=== PATIENT | female | born 1980 | race Caucasian/White ===

== ENCOUNTER 2017-10-06 14:26 | Emergency (ER) | payer OTHER ==
--- OUTSIDE RECORDS SUMMARY | 2017-10-06 14:27 | XMS REPORT | Clinical Summary ---
:1980 Author Organization [facility] Address [address] [place] [address] Phone Care Team Providers Name Role Phone Unavailable Primary Care Provider Unavailable Allergies Active Allergy Reactions Severity Noted Date Comments Penicillins 10/18/2015 Current Medications Prescription Sig. Disp. Refills Start Date End Date Status HYDROcodone-acetaminophen Take 1 tablet by Active (NORCO 10-325) 10-325 mg mouth every 6 (six) per tablet hours as needed for Pain. baclofen (LIORESAL) 20 MG Take 20 mg by mouth Active tablet 3 (three) times daily. meloxicam (MOBIC) 15 MG Take 15 mg by mouth Active tablet 2 (two) times daily. dimethyl fumarate 240 mg Take 240 mg by Active CpDRIndications: mouth 2 (two) times relapsing form of daily. multiple sclerosis LORazepam (ATIVAN) 1 MG Take 2 mg by mouth Active tabletIndications: 2 (two) times anxiety daily. varenicline (CHANTIX) 1 Take 1 mg by mouth Active mg tabletIndications: 2 (two) times daily Smoking Cessation Give with meals and with a full glass of water. . venlafaxine (EFFEXOR-XR) Take 150 mg by Active 150 MG 24 hr capsule mouth daily. Active Problems Problem Noted Date Multiple sclerosis exacerbation (HCC) 10/19/2015 TIA (transient ischemic attack) 10/17/2015 Social History Tobacco Use Types Packs/Day Years Used Date Former Smoker Quit: 08/18/2015 Sex Assigned at Date Recorded Not on file Last Filed Vital Signs Not on file Plan of Treatment Not on file Results Not on fileafter 10/05/2016
[2017-10-06] MEDS ORDERED: HYDROCODONE/APAP 5/325 MG TAB ONE (16:07)
--- NOTE | 2017-10-06 16:29 | RAD REPORT ---
EXAM DESCRIPTION: RAD -Hand Left 3 View - 10/06/2017 4:07 pm CLINICAL HISTORY: Left hand pain status post injury FINDINGS: Mildly displaced fracture involves the base of the fifth proximal phalanx. No dislocation is seen
--- NOTE | 2017-10-06 17:23 | ER ---
Nurse's Notes [facility] Name: Sugey Negro Age: 37 yrs Sex: Female : 1980 Arrival Date: 10/06/2017 Time: 14:29 Bed 27 Private MD: Marcus Guevara H Diagnosis: Displaced fracture of proximal phalanx of finger Presentation: 10/06 14:37 Presenting complaint: Patient states: night patient states that they injured dm5 their left hand, majority of pain is in lateral aspect of hand, 4th and 5th digits. Bruising and swelling present at this time. Transition of care: patient was not received from another setting of care. Onset of symptoms was October 04, 2017. Risk Assessment: Do you want to hurt yourself or someone else? Patient reports no desire to harm self or others. Initial Sepsis Screen: Does the patient meet any 2 criteria? No. Patient's initial sepsis screen is negative. Does the patient have a suspected source of infection? No. Patient's initial sepsis screen is negative. Care prior to arrival: None. 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 dm5 7 in. (170.18 cm); Pain 8/10; 14:39 Body Mass Index 24.28 (70.31 kg, 170.18 cm) dm5 ED Course: 14:29 Patient arrived in ED. sb2 14:29 Marcus Guevara DO is Private Physician. sb2 14:39 Triage completed. dm5 14:39 Arm band placed on right wrist. dm5 15:10 August Maria PA is PHCP. jmm 15:10 Florencio Nazario MD is Attending Physician. jmm 15:55 eMeta Carlson, JACQUELINE is Primary Nurse. kr2 16:07 Hand Left 3 View XRAY In Process Unspecified. EDMS 17:21 Karel Montero MD is Referral Physician. jmm 17:41 Orthoglass splint: Ulnar gutter/Boxer splint applied on left forearm. capillary refill dh3 less than 3 seconds Sling applied to left arm. Administered Medications: 16:11 Drug: [place] 5 mg-325 mg 1 tabs Route: PO; kr2 17:58 Follow up: Response: No adverse reaction kr2 Outcome: 17:22 Discharge ordered by . alejandro 17:58 Patient left the ED. kr2 Signatures: Dispatcher [employer] Maria Elena Madison, RN RN dm5 August Maria PA PA Jessica Sotomayor dh3 Meeta Carlson RN RN kr2 Niurka Monterroso sb2
--- NOTE | 2017-10-06 17:23 | EDPHYS ---
Physician Documentation [facility] Name: Sugey Negro Age: 37 yrs Sex: Female : 1980 Arrival Date: 10/06/2017 Time: 14:29 Bed 27 Private MD: Marcus Guevara H ED Physician Florencio Nazario HPI: 10/06 15:37 This 37 yrs old Female presents to ER via Ambulatory with complaints of Hand jmm Injury. 15:37 The patient or guardian reports pain. The complaints affect the dorsal aspect of jmm proximal phalanx of left ring finger, dorsal aspect of proximal phalanx of left little finger and dorsum of left hand. Context: resulted from an unknown cause. Onset: The symptoms/episode began/occurred 2 day(s) ago. Associated signs and symptoms: Pertinent positives: bruising, swelling. The patient has not experienced similar symptoms in the past. Patient complains of pain to the left hand. States that she awoke the day after a libertarian with pain and swelling. Patient unsure of the cause. . 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 15:37 MS/extremity: Positive for bruising. 15:37 Skin: Positive for ecchymosis. 15:37 Neuro: Negative for weakness. 15:37 All other systems are negative. Exam: 15:37 Head/Face: atraumatic. Eyes: EOMI, no conjunctival erythema appreciated Chest/axilla: jmm Normal chest wall appearance and motion. Nontender with no deformity. No lesions are appreciated. Cardiovascular: Regular rate and rhythm. No gallops, murmurs, or rubs. Full/Equal distal pulses. 15:37 Constitutional: The patient appears in no acute distress, alert, awake. 15:37 Musculoskeletal/extremity: painful flexion of the left hand is noted, ecchymosis noted to the base of the 4th and 5th phalanx, < 2 sec dist cap refill, NVI. 15:37 Skin: ecchymosis noted to the base of the left base of the 4th and 5th phalanx. 15:37 Neuro: Orientation: is normal, Mentation: is normal, Memory: is normal. 15:37 Psych: Behavior/mood is pleasant, cooperative. Vital Signs: 14:39 BP 130 / 84; Pulse 96; Resp 18; Temp 97.9; Pulse Ox 96% ; Weight 70.31 kg; Height 5 ft. dm5 7 in. (170.18 cm); Pain 8/10; 14:39 Body Mass Index 24.28 (70.31 kg, 170.18 cm) dm5 Procedures: 17:00 Splinting: Splint applied to left hand using ulnar gutter. applied by tech. Examined by afshan me, post splint application: neurovascular intact, 2+ distal pulses palpable, brisk capillary refill noted, Patient tolerated well. MDM: 15:36 Patient medically screened. [facility] 17:18 Data reviewed: vital signs, nurses notes, radiologic studies, plain films. Counseling: afshan I had a detailed discussion with the patient and/or guardian regarding: the historical points, exam findings, and any diagnostic results supporting the discharge/admit diagnosis, the presence of at least one elevated blood pressure reading (>120/80) during this emergency department visit, radiology results, the need for outpatient follow up, to return to the emergency department if symptoms worsen or persist or if there are any questions or concerns that arise at home. Response to treatment: the patient's symptoms have markedly improved after treatment. 10/06 15:36 Order name: Hand Left 3 View XRAY; Complete Time: 16:37 [facility] 10/06 16:40 Order name: Ulnar Gutter splint; Complete Time: 17:44 [facility] Administered Medications: 16:11 Drug: [place] 5 mg-325 mg 1 tabs Route: PO; kr2 17:58 Follow up: Response: No adverse reaction kr2 Disposition: 19:03 Co-signature as Attending Physician, Florencio Nazario MD. Disposition: 10/06/17 17:22 Discharged to Home. Impression: Displaced fracture of proximal phalanx of finger. - Condition is Stable. - Discharge Instructions: Finger Fracture. - Prescriptions for Tylenol- Codeine #3 300-30 mg Oral Tablet - take 1 tablet by ORAL route every 6 hours As needed; 12 tablet. - Medication Reconciliation Form, Thank You Letter, Antibiotic Education, Prescription Opioid Use form. - Follow up: Karel Montero MD; When: 2 - 3 days; Reason: Continuance of care. Signatures: Dispatcher [employer] Maria Elena Madison, RN RN dm5 August Maria PA PA jmm Starr, Gregory, MD MD Meeta Carlson RN RN kr2 Corrections: (The following items were deleted from the chart) 17:58 17:22 10/06/2017 17:22 Discharged to Home. Impression: Displaced fracture of proximal kr2 phalanx of finger. Condition is Stable. Forms are Medication Reconciliation Form, Thank You Letter, Antibiotic Education, Prescription Opioid Use. Follow up: Karel Montero; When: 2 - 3 days; Reason: Continuance of care. afshan
== END 2017-10-06 17:58 | disposition home or self-care (01) ==
LOC: ER 14:26
PROC: 2W3DX1Z Immobilization of Left Lower Arm using Splint (ICD-10-PCS; principal; 2017-10-06)
DX: S62.615A Displaced fracture of proximal phalanx of left ring finger, initial encounter for closed fracture (principal)
CPT/HCPCS: 99283

== ENCOUNTER 2019-05-09 09:52 | Emergency (ER) | payer OTHER ==
[2019-05-09] MEDS ORDERED: FAMOTIDINE 20 MG TAB ONE (11:23)
--- NOTE | 2019-05-09 11:37 | RAD REPORT ---
EXAM DESCRIPTION: RAD - Chest Pa And Lat (2 Views) - 05/09/2019 11:20 am CLINICAL HISTORY: COUGH COMPARISON: Chest Single View dated 10/17/2015 TECHNIQUE: Frontal and lateral views of the chest were obtained. FINDINGS: The lungs are clear. Bilateral breast implants in place. Heart size is normal and central vasculature is within normal limits. No pleural effusion or pneumothorax seen. No acute bony findi ng noted. No aortic abnormality. IMPRESSION: No acute cardiopulmonary process. No suspicious change from comparison.
--- NOTE | 2019-05-09 11:49 | EDPHYS ---
Physician Documentation [facility] Name: Sugey Negro Age: 39 yrs Sex: Female : 1980 Arrival Date: 05/09/2019 Time: 09:54 Bed 12 Private MD: Marcus Guevara H ED Physician Donis Kahn HPI: 05/09 11:56 This 39 yrs old Female presents to ER via Ambulatory with complaints of Cough.snw 11:56 The patient or guardian reports cough, described as moderate, with no sputum. Onset: snw The symptoms/episode began/occurred 5 week(s) ago, and became persistent. Severity of symptoms: At their worst the symptoms were mild, moderate, in the emergency department the symptoms are unchanged. Associated signs and symptoms: The patient has no apparent associated signs or symptoms. It is unknown whether or not the patient has had similar symptoms in the past. It is unknown whether or not the patient has recently seen a physician. pt denies choking episodes, pt states she feels she is having trouble concentrating. TEST ENG: 10:00 LMP 03/2019 aj1 Historical: - Allergies: 10:00 PENICILLINS; aj1 - Home Meds: 10:00 duloxetine oral oral [Active]; Hydrocodone-Acetaminophen Oral [Active]; Xanax Oral aj1 [Active]; tizanidine oral oral [Active]; Doxycycline Oral [Active]; - PMHx: 10:00 Depression; Multiple Sclerosis; Anxiety; aj1 - Immunization history:: Flu vaccine is not up to date. - Social history:: Smoking status: Patient uses tobacco products, smokes one-half pack cigarettes per day. - Ebola Screening: : Patient denies travel to an Ebola-affected area in the 21 days before illness onset. ROS: 11:53 Constitutional: Negative for fever, chills, and weight loss, Eyes: Negative for injury, snw pain, redness, and discharge, ENT: Negative for injury, pain, and discharge, Neck: Negative for injury, pain, and swelling, Cardiovascular: Negative for chest pain, palpitations, and edema, Abdomen/GI: Negative for abdominal pain, nausea, vomiting, diarrhea, and constipation, Back: Negative for injury and pain, : Negative for injury, bleeding, discharge, and swelling, MS/Extremity: Negative for injury and deformity, Skin: Negative for injury, rash, and discoloration. 11:53 Respiratory: Positive for cough, with no reported sputum. 11:53 Neuro: Positive for difficulty concentrated. Exam: 11:53 Head/Face: Normocephalic, atraumatic. Eyes: Pupils equal round and reactive to light, snw extra-ocular motions intact. Lids and lashes normal. Conjunctiva and sclera are non-icteric and not injected. Cornea within normal limits. Periorbital areas with no swelling, redness, or edema. ENT: Nares patent. No nasal discharge, no septal abnormalities noted. Tympanic membranes are normal and external auditory canals are clear. Oropharynx with no redness, swelling, or masses, exudates, or evidence of obstruction, uvula midline. Mucous membranes moist. Neck: Trachea midline, no thyromegaly or masses palpated, and no cervical lymphadenopathy. Supple, full range of motion without nuchal rigidity, or vertebral point tenderness. No Meningismus. Chest/axilla: Normal chest wall appearance and motion. Nontender with no deformity. No lesions are appreciated. Cardiovascular: Regular rate and rhythm with a normal S1 and S2. No gallops, murmurs, or rubs. Normal PMI, no JVD. No pulse deficits. Respiratory: Lungs have equal breath sounds bilaterally, clear to auscultation and percussion. No rales, rhonchi or wheezes noted. No increased work of breathing, no retractions or nasal flaring. Abdomen/GI: Soft, non-tender, with normal bowel sounds. No distension or tympany. No guarding or rebound. No evidence of tenderness throughout. Back: No spinal tenderness. No costovertebral tenderness. Full range of motion. Skin: Warm, dry with normal turgor. Normal color with no rashes, no lesions, and no evidence of cellulitis. MS/ Extremity: Pulses equal, no cyanosis. Neurovascular intact. Full, normal range of motion. Neuro: Awake and alert, GCS 15, oriented to person, place, time, and situation. Cranial nerves II-XII grossly intact. Motor strength 5/5 in all extremities. Sensory grossly intact. Cerebellar exam normal. Normal gait. Psych: Awake, alert, with orientation to person, place and time. Behavior, mood, and affect are within normal limits. 11:53 Constitutional: The patient appears alert, awake, non-toxic, + cigarette odor Vital Signs: 10:00 BP 133 / 87; Pulse 90; Resp 18; Temp 98.6; Pulse Ox 100% on R/A; Weight 58.97 kg (R); aj1 Height 5 ft. 7 in. (170.18 cm) (R); Pain 0/10; 12:00 BP 128 / 78; Pulse 84; Resp 16; Pulse Ox 100% on R/A; hb 10:00 Body Mass Index 20.36 (58.97 kg, 170.18 cm) aj1 MDM: 10:14 Patient medically screened. [facility] 11:55 Data reviewed: vital signs, nurses notes. Data interpreted: Pulse oximetry: on room air snw is 100 %. Interpretation: normal. Counseling: I had a detailed discussion with the patient and/or guardian regarding: the historical points, exam findings, and any diagnostic results supporting the discharge/admit diagnosis, the presence of at least one elevated blood pressure reading (>120/80) during this emergency department visit, radiology results, the need for outpatient follow up, to return to the emergency department if symptoms worsen or persist or if there are any questions or concerns that arise at home. Counseling: I had a detailed discussion with the patient and/or guardian regarding: smoking cessation. Special discussion: I have referred the patient to see his PCP for further evaluation of high blood pressure. Based on the history and exam findings, there is no indication for further emergent testing or inpatient evaluation. I discussed with the patient/guardian the need to see the neurologist for further evaluation of the symptoms. I discussed with the patient/guardian the need to see the primary care provider for further evaluation of the symptoms. 05/09 10:33 Order name: Chest Pa And Lat (2 Views) XRAY; Complete Time: 11:41 snw Administered Medications: 11:52 Drug: Pepcid 20 mg Route: PO; aj1 12:01 Follow up: Response: Medication administered at discharge. hb 12:00 Drug: Decadron 8 mg Route: PO; hb 12:01 Follow up: Response: Medication administered at discharge. Disposition: 15:12 Co-signature as Attending Physician, Donis Kahn MD I agree with the assessment and [facility] plan of care. Disposition: 05/09/19 11:48 Discharged to Home. Impression: Cough. - Condition is Stable. - Discharge Instructions: Food Choices for Gastroesophageal Reflux Disease, Adult, Gastroesophageal Reflux Disease, Adult, Steps to Quit Smoking, Smoking Hazards, Cough, Adult. - Prescriptions for Pepcid 20 mg Oral Tablet - take 1 tablet by ORAL route once daily; 20 tablet. - Work release form, Medication Reconciliation Form, Thank You Letter, Antibiotic Education, Prescription Opioid Use form. - Follow up: Emergency Department; When: As needed; Reason: Worsening of condition. Follow up: Marcus Guevara DO; When: 2 - 3 days; Reason: Recheck today's complaints, Continuance of care, Re-evaluation by your physician. Signatures: Dispatcher [employer] EDGloria Samaniego RN RN ajDonis Byrne MD MD cha Therrien, Shelly, POWER PLANT TECHNICIAN-C POWER PLANT TECHNICIAN-Csnw Holly Herring RN RN hb Corrections: (The following items were deleted from the chart) 12:03 11:48 05/09/2019 11:48 Discharged to Home. Impression: Cough. Condition is Stable. hb Forms are Medication Reconciliation Form, Thank You Letter, Antibiotic Education, Prescription Opioid Use. Follow up: Emergency Department; When: As needed; Reason: Worsening of condition. Follow up: Marcus Guevara; When: 2 - 3 days; Reason: Recheck today's complaints, Continuance of care, Re-evaluation by your physician. snw
--- NOTE | 2019-05-09 11:49 | ER ---
Nurse's Notes [facility] Name: Sugey Negro Age: 39 yrs Sex: Female : 1980 Arrival Date: 05/09/2019 Time: 09:54 Bed 12 Private MD: Marcus Guevara H Diagnosis: Cough Presentation: 05/09 09:56 Presenting complaint: Patient states: "I've had this terrible cough for the past month aj1 and it won't go away. Also I have MS and I've been repeating myself a lot and its starting to worry me" Reports subjective fever. Reports nasal congestion. Denies N/V/D. Transition of care: patient was not received from another setting of care. Onset of symptoms was 2019. Risk Assessment: Do you want to hurt yourself or someone else? Patient reports no desire to harm self or others. Initial Sepsis Screen: Does the patient meet any 2 criteria? HR > 90 bpm. No. Patient's initial sepsis screen is negative. Does the patient have a suspected source of infection? Yes: Productive cough/pneumonia. Care prior to arrival: None. 09:56 Method Of Arrival: Ambulatory aj1 09:56 Acuity: ANN MARIE 4 aj1 Triage Assessment: 10:00 General: Appears in no apparent distress. comfortable, Behavior is calm, cooperative, aj1 appropriate for age. Pain: Denies pain. EENT: Reports nasal congestion nasal discharge. Neuro: Level of Consciousness is awake, alert, obeys commands. Cardiovascular: Patient's skin is warm and dry. Respiratory: Reports cough that is hacking, persistent Airway is patent Respiratory effort is even, unlabored, Respiratory pattern is regular, symmetrical. GI: No signs and/or symptoms were reported involving the gastrointestinal system. : No signs and/or symptoms were reported regarding the genitourinary system. Derm: No signs and/or symptoms reported regarding the dermatologic system. Skin is pink, warm \\T\\ dry. normal. Musculoskeletal: No signs and/or symptoms reported regarding the musculoskeletal system. Circulation, motion, and sensation intact. 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 - Social history:: Smoking status: Patient uses tobacco products, smokes one-half pack cigarettes per day. - Ebola Screening: : Patient denies travel to an Ebola-affected area in the 21 days before illness onset. Screenin:02 Abuse screen: Denies threats or abuse. Denies injuries from another. Nutritional aj1 screening: No deficits noted. Tuberculosis screening: No symptoms or risk factors identified. 10:20 Fall Risk None identified. hb Assessment: 10:02 Reassessment: see triage assessment. aj1 11:00 Reassessment: Patient appears in no apparent distress at this time. Patient and/or hb family updated on plan of care and expected duration. Pain level reassessed. Patient is alert, oriented x 3, equal unlabored respirations, skin warm/dry/pink. 12:02 Reassessment: Patient appears in no apparent distress at this time. Patient and/or hb family updated on plan of care and expected duration. Pain level reassessed. Patient is alert, oriented x 3, equal unlabored respirations, skin warm/dry/pink. Vital Signs: 10:00 BP 133 / 87; Pulse 90; Resp 18; Temp 98.6; Pulse Ox 100% on R/A; Weight 58.97 kg (R); aj1 Height 5 ft. 7 in. (170.18 cm) (R); Pain 0/10; 12:00 BP 128 / 78; Pulse 84; Resp 16; Pulse Ox 100% on R/A; hb 10:00 Body Mass Index 20.36 (58.97 kg, 170.18 cm) aj1 ED Course: 09:54 Patient arrived in ED. mr 09:55 Marcus Guevara DO is Private Physician. mr 09:58 Triage completed. aj1 10:00 Arm band placed on Patient placed in an exam room. aj1 10:02 Patient has correct armband on for positive identification. aj1 10:02 No provider procedures requiring assistance completed. aj1 10:06 Duane Trivedi NP is PHCP. pm1 10:06 Donis Kahn MD is Attending Physician. pm1 10:06 PHCP role handed off by Duane Trivedi NP snw 10:06 Zoey Lucas FNP-C is PHCP. snw 11:21 Chest Pa And Lat (2 Views) XRAY In Process Unspecified. EDMS 11:34 Holly Herring, RN is Primary Nurse. hb 11:48 Marcus Guevara DO is Referral Physician. snw 12:00 Patient did not have IV access during this emergency room visit. hb Administered Medications: 11:52 Drug: Pepcid 20 mg Route: PO; aj1 12:01 Follow up: Response: Medication administered at discharge. hb 12:00 Drug: Decadron 8 mg Route: PO; hb 12:01 Follow up: Response: Medication administered at discharge. hb Outcome: 11:48 Discharge ordered by . snw 12:00 Discharged to home ambulatory, with family. hb 12:00 Condition: stable 12:00 Discharge instructions given to patient, Instructed on discharge instructions, follow up and referral plans. medication usage, Demonstrated understanding of instructions, follow-up care, medications. 12:03 Patient left the ED. hb Signatures: Dispatcher [employer] EDNY Gloria Cowan RN RN aj1 Zoey Lucas FNP-C FNP-[facility] Karol Branham mr Duane Trivedi, ALLY HEAD TRANSFER CLERK pm1 Holly Herring, RN RN hb
[2019-05-09] MEDS ORDERED: dexAMETHasone 4 MG TAB ONE (11:52)
[2019-05-09 12:23] VITALS: BP 128/78; O2SAT 100
[2019-05-09 12:25] VITALS: TEMP 98.6
== END 2019-05-09 12:03 | disposition home or self-care (01) ==
LOC: ER 09:52
DX: R05 Cough (principal); F17.210 Nicotine dependence, cigarettes, uncomplicated; F41.9 Anxiety disorder, unspecified; F32.9 Major depressive disorder, single episode, unspecified; Z88.0 Allergy status to penicillin
CPT/HCPCS: 71046; 99283; J8540

== ENCOUNTER 2023-02-11 12:57 | Emergency (ER) | payer OTHER ==
--- OUTSIDE RECORDS SUMMARY | 2023-02-11 13:01 | XMS REPORT | Continuity of Care Document ---
:1980 Author Organization [facility] t Address [address] [facility] [address] [place] [address] Care Team Providers Name Role Phone Sharpilya Primary Care Physician Problems Condition Condition Condition Status Onset Resolution Last Treating Co mments Source Name Details Category Date Date Treatment Clinician Date Multiple Multiple Disease [facility] exacerbati exacerbati 00:00: Me dical on on 00 Center TIA TIA Disease Active [facility] (transient (transient 10-16 Alana kes ischemic ischemic 00:00: Medica l attack) attack) 00 Center Allergies, Adverse Reactions, Alerts Allergy Allergy Status Severity Reaction(s) Onset Inactive Treating Comm ents Source Name Type Date Date Clinician Penicill Propensi Active [facility] adverse [facility]: Medical reaction 00 Center s Penicill Propensi Active [facility] adverse 00:[facility]: [facility] reaction 00 [facility] s Social History Social Habit Start Date Stop Date Quantity Comments Source Alcohol intake 2015-10-18 2015-10-[address] [facility] 00:[facility]00 [facility]00 [facility] History of tobacco 2015-08-[address] [facility] Sex Assigned At [address] [facility] k[facility] 00:00:00 [facility]00 [facility] Smoking Status Start Date Stop Date Source Former smoker 2015-10-18 00:00:00 2015-10-18 00:00:[address] [facility] Medications Ordered Filled Start Stop Current Ordering Indication Dosage Frequency Signature Comments Components Source Medication Medication Date Date Medication? Clinician (SIG) Name Name baclofen Yes 20mg [id number] Take [address] [facility] (LIORESAL) 6-29 [id number] by mouth 3 [facility] 20 MG 12:05: 3D (three) Medical tablet 51 times Center daily. meloxicam 2016-0 Yes 15mg Q.5D Take [address] [facility] (MOBIC) 15 6-29 by mouth 2 Jeremías es MG tablet 12:05: (two) Medical 51 times Center daily. dimethyl 2016-0 Yes relapsing 240mg Q.5D Take [address] [facility] fumarate 6-29 form of mg by [facility] 240 mg CpDR 12:05: multiple mouth 2 Medical 51 sclerosis (two) Center times daily. LORazepam 2015-0 Yes anxiety 2mg Q.5D Take [address] [facility] (ATIVAN) 1 6-29 by mouth 2 Jeremías es MG tablet 12:05: (two) Medical 51 times Center daily. varenicline 2015- Yes smoking 1mg Q.5D Take [address] [facility] (CHANTIX) 1 6-29 cessation by mouth 2 [facility] mg tablet 12:05: (two) Medical 51 times Center daily Give with meals and with a full glass of water. . venlafaxine Yes 150mg QD Take [address] (EFFEXOR-XR 6-29 mg by [facility] ) 150 MG 24 12:05: mouth Medic al hr capsule 51 daily. Center HYDROcodone 0 Yes 1{tbl} Take [address] -acetaminop 6-29 tablet by Jeremías es hen (NORCO 12:05: mouth Medica l 10-325) 51 every 6 Center 10-325 mg (six) per tablet hours as needed for Pain. baclofen 2016-0 Yes 20mg Q.[id number] Take [address] [facility] (LIORESAL) 6-29 [id number] by mouth 3 [facility] 20 MG 12:05: 3D (three) Medical tablet 51 times Center daily. meloxicam 2016-0 Yes 15mg Q.5D Take [address] [facility] [address] [facility] (MOBIC) 15 6-29 by mouth 2 Jeremías es MG tablet 12:05: (two) Medical 51 times Center daily. dimethyl 2015- Yes relapsing 240mg Q.5D Take [address] [facility] [address] fumarate 6-29 form of mg by [facility] 240 mg CpDR 12:05: multiple mouth 2 Medical 51 sclerosis (two) Center times daily. LORazepam 2016-0 Yes anxiety 2mg Q.5D Take [address] [facility] (ATIVAN) 1 6-29 by mouth 2 Jeremías es MG tablet 12:05: (two) Medical 51 times Center daily. varenicline 2016-0 Yes smoking 1mg Q.5D Take [address] [facility] (CHANTIX) 1 6-29 cessation by mouth 2 [facility] mg tablet 12:05: (two) Medical 51 times Center daily Give with meals and with a full glass of water. . venlafaxine 2016-0 Yes 150mg QD Take [address] (EFFEXOR-XR 6-29 mg by [facility] ) 150 MG 24 12:05: mouth Medic al hr capsule 51 daily. Center HYDROcodone 2015-0 Yes 1{tbl} Take [address] -acetaminop 6-29 tablet by Jeremías es hen (NORCO 12:05: mouth Medica l 10-325) 51 every 6 Center 10-325 mg (six) per tablet hours as needed for Pain. baclofen 2016-0 Yes 20mg Q.[id number] Take [address] [facility] (LIORESAL) 6-29 [id number] by mouth 3 [facility] 20 MG 12:05: 3D (three) Medical tablet 51 times Center daily. HYDROcodone 2016-0 Yes 1{tbl} Take [address] -acetaminop 6-29 tablet by Jeremías es hen (NORCO 12:05: mouth Medica l 10-325) 51 every 6 Center 10-325 mg (six) per tablet hours as needed for Pain. baclofen 2016-0 Yes 20mg Q.[id number] Take [address] [facility] (LIORESAL) 6-29 [id number] by mouth 3 [facility] 20 MG 12:05: 3D (three) Medical tablet 51 times Center daily. meloxicam 2016-0 Yes 15mg Q.5D Take [address] [facility] [address] [facility] (MOBIC) 15 6-29 by mouth 2 Jeremías es MG tablet 12:05: (two) Medical 51 times Center daily. dimethyl 2016-0 Yes relapsing 240mg Q.5D Take [address] [facility] [address] fumarate 6-29 form of mg by [facility] 240 mg CpDR 12:05: multiple mouth 2 Medical 51 sclerosis (two) Center times daily. LORazepam 2015-0 Yes anxiety 2mg Q.5D Take [address] [facility] (ATIVAN) 1 6-29 by mouth 2 Jeremías es MG tablet 12:05: (two) Medical 51 times Center daily. varenicline Yes smoking 1mg Q.5D Take [address] [facility] (CHANTIX) 1 6-29 cessation by mouth 2 [facility] mg tablet 12:05: (two) Medical 51 times Center daily Give with meals and with a full glass of water. . venlafaxine Yes 150mg QD Take [address] (EFFEXOR-XR 6-29 mg by [facility] ) 150 MG 24 12:05: mouth Medic al hr capsule 51 daily. Center meloxicam Yes 15mg Q.5D Take [address] [facility] [address] (MOBIC) 15 6-29 by mouth 2 Jeremías es MG tablet 12:05: (two) Medical 51 times Center daily. dimethyl Yes relapsing 240mg Q.5D Take [address] [address] fumarate 6-29 form of mg by [facility] 240 mg CpDR 12:05: multiple mouth 2 Medical 51 sclerosis (two) Center times daily. LORazepam Yes anxiety 2mg Q.5D Take [address] [facility] (ATIVAN) 1 6-29 by mouth 2 Jeremías es MG tablet 12:05: (two) Medical 51 times Center daily. varenicline Yes smoking 1mg Q.5D Take [address] [facility] (CHANTIX) 1 6-29 cessation by mouth 2 [facility] mg tablet 12:05: (two) Medical 51 times Center daily Give with meals and with a full glass of water. . venlafaxine Yes 150mg QD Take [address] (EFFEXOR-XR 6-29 mg by [facility] ) 150 MG 24 12:05: mouth Medic al hr capsule 51 daily. Center HYDROcodone Yes 1{tbl} Take [address] -acetaminop 6-29 tablet by Jeremías es hen (NORCO 12:05: mouth Medica l 10-325) 51 every 6 Center 10-325 mg (six) per tablet hours as needed for Pain. Procedures This patient has no known procedures. Results This patient has no known results.
[2023-02-11] MEDS ORDERED: MECLIZINE HCL 12.5 MG TAB ONE (14:10)
[2023-02-11 14:45] LABS: Absolute Lymphocytes (CBC) 2.5 K/uL (0.7-4.9); Hematocrit 38.6 % (36.0-45.0); Lymphocytes % 27.9 % (15.3-44.8); MPV 7.9 fL (7.6-11.3); Platelets 297 thou/uL (152-406); RBC Red Blood Cell Count 4.14 M/uL (3.86-4.86)
[2023-02-11 15:05] LABS: Albumin 3.8 g/dL (3.4-5.0); Bilirubin Direct 0.4 mg/dL (0-0.2); Bilirubin Indirect, Calculated 1.2 mg/dL (0.2-0.8); Bilirubin Total 1.6 mg/dL (0.2-1.0); Magnesium 2.2 mg/dL (1.6-2.4); Potassium 3.3 mEq/L (3.5-5.1); Protein, Total 7.4 g/dL (6.4-8.2); Troponin High Sensitivity 4.8 pg/mL (<58.9)
[2023-02-11 15:14] LABS: Protime INR 1.05
--- NOTE | 2023-02-11 16:06 | EDPHYS ---
Physician Documentation [facility] Name: Sugey Negro Age: 42 yrs Sex: Female : 1980 Arrival Date: 02/11/2023 Time: 12:57 Bed 11 Private MD: ED Physician Elvin Jones HPI: 02/11 18:30 This 42 yrs old Female presents to ER via Ambulatory with complaints of finger kb discoloration, Dizziness, weight loss concern. 18:30 Patient reports dizziness for 1 month with intermittent discoloration of hands turning kb white at the fingertips. Reports weight loss of 10 pounds over the last few months as well. States she has MS and has had these symptoms multiple times in the past. States her friend made her come to the ER today. Reports feeling that helped in the past with steroids but she refuses to take them anymore.. 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 - Social history:: Smoking status: Reported history of juuling and/or vaping. Patient denies any tobacco usage or history of. ROS: 18:30 Respiratory: Negative for shortness of breath, cough, wheezing, and pleuritic chest kb pain, 18:30 Constitutional: Positive for weight loss, 18:30 Neuro: Positive for dizziness, 18:30 All other systems are negative, Exam: 18:30 Constitutional: This is a well developed, well nourished patient who is awake, alert, kb and in no acute distress. Head/Face: Normocephalic, atraumatic. ENT: Moist Mucous membranes Cardiovascular: Regular rate Respiratory: Respirations even and unlabored. No increased work of breathing. Talking in full sentences Abdomen/GI: Soft, non-tender. No distention Skin: Warm, dry with normal turgor. Normal color. MS/ Extremity: Pulses equal, no cyanosis. Neurovascular intact. Full, normal range of motion. Neuro: Awake and alert, GCS 15, oriented to person, place, time, and situation. Moves all extremities. Normal gait. Vital Signs: 13:15 BP 125 / 86; Pulse 93; Resp 16; Temp 98.1; Pulse Ox 100% ; Weight 56.7 kg; Height 5 ft. ll1 7 in. ; 15:35 BP 133 / 83 Supine; Pulse 73; ap3 15:40 BP 132 / 92 Sitting; Pulse 71; ap3 15:46 BP 122 / 91 Standing; Pulse 78; ap3 13:15 Body Mass Index 19.58 (56.70 kg, 170.18 cm) ll1 MDM: 13:12 Patient medically screened. kb 18:30 Differential diagnosis: cardiac arrhythmia, generalized weakness, idiopathic dizziness. kb Data reviewed: vital signs, nurses notes. Test considered but Not performed: CT: CT head considered but patient has no neurodeficits.. Counseling: I had a detailed discussion with the patient and/or guardian regarding the historical points, exam findings, and any diagnostic results supporting the discharge/admit diagnosis, lab results, the need for outpatient follow up, a family practitioner, to return to the emergency department if symptoms worsen or persist or if there are any questions or concerns that arise at home. 02/11 13:14 Order name: Basic Metabolic Panel; Complete Time: 15:07 kb 02/11 13:14 Order name: CBC with Diff; Complete Time: 14:55 kb 02/11 13:14 Order name: Hepatic Function; Complete Time: 15:07 kb 02/11 13:14 Order name: Magnesium; Complete Time: 15:07 kb 02/11 13:14 Order name: Protime (+inr); Complete Time: 15:15 kb 02/11 13:14 Order name: Ptt, Activated; Complete Time: 15:15 kb 02/11 13:14 Order name: Troponin High Sensitivity; Complete Time: 15:07 kb 02/11 13:14 Order name: EKG; Complete Time: 13:15 kb 02/11 13:14 Order name: Cardiac monitoring; Complete Time: 14:31 kb 02/11 13:14 Order name: EKG - Nurse/Tech; Complete Time: 15:33 kb 02/11 13:14 Order name: IV Saline Lock; Complete Time: 15:13 kb 02/11 13:14 Order name: Labs collected and sent; Complete Time: 15:13 kb 02/11 13:14 Order name: NPO; Complete Time: 14:31 kb 02/11 13:14 Order name: O2 Per Protocol; Complete Time: 14:25 kb 02/11 13:14 Order name: O2 Sat Monitoring; Complete Time: 14:25 kb 02/11 13:14 Order name: Orthostatics; Complete Time: 15:46 kb Administered Medications: 14:37 Drug: Meclizine PO 25 mg PO once Route: PO; ap3 16:12 Follow up: Response: No adverse reaction ap3 Disposition: 02/12 10:01 Co-signature as Attending Physician, Elvin Jones MD I reviewed the patient's care rn provided by the Advanced Practice Provider and agree with the diagnosis and treatment plan. Disposition Summary: 02/11/23 16:05 Discharge Ordered Notes: Location: Home kb Condition: Stable kb Diagnosis - Dizziness and giddiness kb Followup: kb - With: Emergency Department - When: As needed - Reason: Worsening of condition Followup: kb - With: Private Physician - When: 2 - 3 days - Reason: Recheck today's complaints, Continuance of care, Re-evaluation by your physician Discharge Instructions: - Discharge Summary Sheet kb - Dizziness, [id number] kb Forms: - Medication Reconciliation Form kb - Thank You Letter kb - Antibiotic Education kb - Prescription Opioid Use kb - Patient Portal Instructions kb - Leadership Thank You Letter kb Signatures: Dispatcher [employer] Carrie Perez, CONRAD-Uriah PEARSONP-Elvin Burdick MD MD rn Prokisch, Amanda RN RN ap3 Evan Cole RN RN ll1
--- NOTE | 2023-02-11 16:06 | ER ---
Nurse's Notes [facility] Name: Sugey Negro Age: 42 yrs Sex: Female : 1980 Arrival Date: 02/11/2023 Time: 12:57 Bed 11 Private MD: Diagnosis: Dizziness and giddiness Presentation: 02/11 13:15 Chief complaint: Patient states: Dizzy, weight loss, fingertips get white at times for ll1 1 month. Coronavirus screen: Client denies travel out of the [place] in the last 14 days. At this time, the client does not indicate any symptoms associated with coronavirus-19. Ebola Screen: Patient denies travel to an Ebola-affected area in the 21 days before illness onset. Initial Sepsis Screen: Does the patient meet any 2 criteria? HR > 90 bpm. No. Patient's initial sepsis screen is negative. Does the patient have a suspected source of infection? No. Patient's initial sepsis screen is negative. Risk Assessment: Do you want to hurt yourself or someone else? Patient reports no desire to harm self or others. Onset of symptoms was January 12, 2023. 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 - Social history:: Smoking status: Reported history of juuling and/or vaping. Patient denies any tobacco usage or history of. Screenin:32 [facility] ED Fall Risk Assessment (Adult) History of falling in the last 3 months, ap3 including since admission No falls in past 3 months (0 pts). Abuse screen: Denies threats or abuse. Nutritional screening: No deficits noted. Tuberculosis screening: No symptoms or risk factors identified. Assessment: 14:31 General: Appears in no apparent distress. Behavior is calm, cooperative, appropriate ap3 for age. Pain: Denies pain. Neuro: Level of Consciousness is awake, alert, obeys commands, Oriented to person, place, time, situation. Neuro: Reports a syncopal episode. Cardiovascular: Patient's skin is warm and dry. Respiratory: Airway is patent Respiratory effort is even, unlabored, Respiratory pattern is regular, symmetrical. Vital Signs: 13:15 BP 125 / 86; Pulse 93; Resp 16; Temp 98.1; Pulse Ox 100% ; Weight 56.7 kg; Height 5 ft. ll1 7 in. ; 15:35 BP 133 / 83 Supine; Pulse 73; ap3 15:40 BP 132 / 92 Sitting; Pulse 71; ap3 15:46 BP 122 / 91 Standing; Pulse 78; ap3 13:15 Body Mass Index 19.58 (56.70 kg, 170.18 cm) ll1 ED Course: 13:00 Patient arrived in ED. am2 13:11 Carrie Pedersen FNP-C is [facility]. kb 13:11 Elvin Jones MD is Attending Physician. kb 13:16 Triage completed. ll1 13:17 Arm band placed on. ll1 14:24 Tram Montano, RN is Primary Nurse. ap3 14:32 Patient has correct armband on for positive identification. Bed in low position. Call ap3 light in reach. Side rails up X 1. Adult w/ patient. ekg monitor on. Pulse ox on. NIBP on. 15:12 Missed attempt(s): 22 gauge in left antecubital area. Bleeding controlled, band aid sm8 applied, catheter tip intact. 15:12 Inserted saline lock: 22 gauge in right antecubital area, using aseptic technique. sm8 Blood collected. 15:20 EKG done, by ED staff, reviewed by Carrie BAUMAN. ap3 16:09 Provided Education on: discharge instructions. ap3 16:09 No provider procedures requiring assistance completed. IV discontinued, intact, ap3 bleeding controlled, No redness/swelling at site. Pressure dressing applied. Administered Medications: 14:37 Drug: Meclizine PO 25 mg PO once Route: PO; ap3 16:12 Follow up: Response: No adverse reaction ap3 Medication: 16:09 VIS not applicable for this client. ap3 Outcome: 16:05 Discharge ordered by . kb 16:09 Discharged to home ambulatory, ap3 16:09 Condition: good 16:09 Discharge instructions given to patient, Instructed on discharge instructions, follow up and referral plans. Demonstrated understanding of instructions, follow-up care, 16:12 Patient left the ED. ap3 Signatures: Carrie Pedersen FNP-C FNP-Tram Owusu am2 Tram Montano RN RN ap3 Evan Cole RN RN ll1 Leeann Cavazos 8
--- NOTE | 2023-02-12 18:07 | EKG ---
Test Date: 2023-02-11 Test Time: 15:14:03 Flute Polisher: ALP MEASUREMENT RESULTS: Intervals: Rate: 61 MI: 130 QRSD: 100 QT: 400 QTc: 402 Dolphin: P: 73 MI: 130 QRS: 85 T: 81 INTERPRETIVE STATEMENTS: Normal sinus rhythm Minimal voltage criteria for LVH, may be normal variant Borderline ECG Compared to ECG 10/17/2015 13:36:02 Left ventricular hypertrophy now present Electronically Signed On 02-12-23 18:05:23 CDT by Juan Pardo
== END 2023-02-11 16:12 | disposition home or self-care (01) ==
LOC: ER 12:57
DX: R42 Dizziness and giddiness (principal); Z98.82 Breast implant status; Z88.0 Allergy status to penicillin
CPT/HCPCS: 93005; 85025; 80048; 36415; 83735; 85610; 80076; 85730; 84484; 99284; J8597